=== PATIENT | male | born 1995 | race Caucasian/White ===

== ENCOUNTER 2024-01-23 08:18 | Outpatient (AMB) | payer OTHER, SELFPAY ==
--- NOTE | 2024-01-23 08:34 | AM.OFFWIN_ITS ---
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 While every effort has been made to ensure accuracy, coil winding machines set up mechanic errors may have been included. The patient is a 28 year old male who presents to the clinic today with headache for the past 3 days located frontal and maxillary region. He notes that he has had several incidences with similar headaches that were less intense in the last several months which he attributed to a sinus infection, however he did not get these treated. He mostly has taken Sudafed to help relieve the symptoms but it does not seem to resolve. Pain is worse when he leans forward. No thunderclap headache, no personal or family history of subarachnoid hemorrhage or aneurysm. Pain is mask like, and feels quite congested. He denies fever, chills, cough, shortness of breath. No photophobia or phonophobia or unilateral pain. [facility] Social History Patient Tobacco Use Status: Former Tobacco user Review of Systems Const All systems reviewed & are unremarkable except as noted in HPI and below Physical Exam Vital Signs: Last Vital Signs Temp 98.8 F 01/23/24 08:35 Pulse 76 01/23/24 08:35 BP 126/80 01/23/24 08:35 Pulse Ox 98 01/23/24 08:35 Oxygen Delivery Method Room Air 01/23/24 08:35 BMI result Body Mass Index 26.9 Const General: cooperative, healthy appearing, comfortable, no acute distress and alert Orientation/consciousness: patient oriented x3 Limitations: no limitations HEENT Head: Yes normal to inspection and Yes normocephalic Ears: hearing grossly normal bilaterally and TM abnormal with fluid behind the TM (Thick white bilaterally) General nose exam: Normal external nose present, Abnormal mucous membranes and turbinates present erythematous and Nasal discharge present clear Face and sinus: Yes normal facial exam and Yes sinus tenderness (Maxillary and frontal bilaterally) Mouth: Normal oral and palatal mucosa present and tongue normal Teeth and gingiva: dentition normal Throat: Yes posterior oropharynx normal Eyes General: appearance normal, both eyes and all related structures Neck Neck: Yes normal visual inspection, Yes full ROM and Yes no lymphadenopathy Resp Effort & Inspection: normal respiratory effort and able to speak in complete sentences Auscultation: clear to auscultation bilaterally Cardio Jugular venous distension: no JVD Palpation: normal PMI Rate: regular rate Heart sounds: S1 normal heart sound present, S2 normal heart sound present, no click, no gallops, no murmurs and no rubs Skin General skin exam: no rashes or lesions noted, elasticity normal and turgor normal Neuro General: patient oriented x3 Cranial nerves: Yes CN's II-XII intact bilaterally Psych Appearance: grossly normal Mental Status: mental status grossly normal Speech and movement: Normal speech and movement present Affect: normal affect Assessment & Plan Assessment & Plan (1) Sinusitis: Code(s): J32.9 - Chronic sinusitis, unspecified Qualifiers: Sinusitis location: unspecified location Chronicity: acute Recurrence: not specified as recurrent Qualified Code(s): J01.90 - Acute sinusitis, unspecified Plan: Given ongoing and recurrent symptoms recently, and physical examination findings, patient most likely consistent with ABRS. Antimicrobial therapy prescribed with Augmentin. Patient does not have migraine headache in absence of meeting criteria of unilateral findings, photo or phonophobia, and is absent of any red flag findings warranting any imaging. Reviewed with patient red flag findings that would warrant emergent evaluation. Advised patient to follow up with PCP with worsening symptoms or failure to resolve. Plan See above for full details and plan. Medications: New amoxicillin-pot clavulanate 875-125 mg 1 tab PO BID 10 days 20 tabs 0RF Coding Level of Care Code New Pt Level 3 (84588) Diagnoses Acute sinusitis, recurrence not specified, unspecified location J01.90 Sinusitis location: unspecified location Chronicity: acute Recurrence: not specified as recurrent
[2024-01-23 08:35] VITALS: BP 126/80; PULSE 76; TEMP 37.1; O2SAT 98; BMI 26.9
== END 2024-01-23 09:13 | disposition home or self-care (01) ==
PROVIDERS: PCP Pediatrics; Visit Provider Registered Nurse
DX: J01.90 Acute sinusitis, unspecified (principal)
CPT/HCPCS: 99203